=== PATIENT | female | born 1945 | race Two or more races ===

== ENCOUNTER 2022-03-22 13:11 | Inpatient (IN) | payer OTHER ==
[~2022-03-22] VITALS: Ht 162.6 cm; Wt 88.5 kg
[2022-03-22] MEDS ORDERED: LIPITOR40 M1 (17:56)
[2022-03-22] MEDS ORDERED: DIOVAN HCT 1601 EACH (17:56)
[2022-03-22] MEDS ORDERED: HUMALOG100 UNIT/2 (17:56)
[2022-03-22] MEDS ORDERED: VITAMIN D310 MCG/1 M (17:56)
[2022-03-25] MEDS ORDERED: LIPITOR40 M1 PO (14:54)
[2022-03-25] MEDS ORDERED: DIOVAN HCT 1601 EACH PO (14:55)
[2022-03-25] MEDS ORDERED: [UNRECOGNIZED DRUG - OTHER] SUBCUTANEO (14:56)
[2022-03-25] MEDS ORDERED: HUMALOG100 UNIT/1 SUBCUTANEO (14:56)
[2022-03-25] MEDS ORDERED: HUMALOG SUBCUTANEO (14:56)
== END 2022-03-25 16:00 | disposition home or self-care (01) | DRG 641 ==
LOC: MEDJ 13:11 → SEC-K 13:11 → MEDJ 03-23 07:48 → SEC-K 03-23 21:09 → MEDJ 03-23 21:10
PROVIDERS: ADMIT Internal Medicine Hematology & Oncology; ATTEND Internal Medicine Hematology & Oncology
PROC: 8E0ZXY6 Isolation (ICD-10-PCS; principal; 2022-03-22)
PROC: BW24ZZZ Computerized Tomography (CT Scan) of Chest and Abdomen (ICD-10-PCS; 2022-03-23)
DX: E86.0 Dehydration (principal); E27.3 Drug-induced adrenocortical insufficiency; D84.81 Immunodeficiency due to conditions classified elsewhere; E44.0 Moderate protein-calorie malnutrition; C34.12 Malignant neoplasm of upper lobe, left bronchus or lung; C77.1 Secondary and unspecified malignant neoplasm of intrathoracic lymph nodes; C79.51 Secondary malignant neoplasm of bone; T45.1X5A Adverse effect of antineoplastic and immunosuppressive drugs, initial encounter; E87.1 Hypo-osmolality and hyponatremia; K12.1 Other forms of stomatitis; E11.65 Type 2 diabetes mellitus with hyperglycemia; Y92.9 Unspecified place or not applicable; Z79.4 Long term (current) use of insulin
CPT/HCPCS: 240